=== PATIENT | male | born 1995 | race Two or more races ===

== ENCOUNTER 2017-06-29 20:20 | Emergency (ER) | payer OTHER ==
[~2017-06-29] VITALS: Ht 175.3 cm; Wt 100.7 kg
== END 2017-06-29 23:29 | disposition home or self-care (01) ==
LOC: ER 20:20
DX: S90.32XA Contusion of left foot, initial encounter (principal); W22.8XXA Striking against or struck by other objects, initial encounter; Y93.89 Activity, other specified; Y92.69 Other specified industrial and construction area as the place of occurrence of the external cause; Y99.8 Other external cause status

== ENCOUNTER 2018-10-01 19:27 | Emergency (ER) | payer OTHER ==
[~2018-10-01] VITALS: Ht 180.3 cm; Wt 104.3 kg
== END 2018-10-01 21:56 | disposition home or self-care (01) ==
LOC: ER 19:27
DX: B34.9 Viral infection, unspecified (principal)

== ENCOUNTER 2019-02-20 10:56 | Emergency (ER) | payer OTHER ==
[~2019-02-20] VITALS: Ht 180.3 cm; Wt 99.8 kg
[2019-02-20] MEDS ORDERED: NAPROXEN500 MG PO (14:31)
== END 2019-02-20 14:38 | disposition home or self-care (01) ==
LOC: ER 10:56
DX: S40.012A Contusion of left shoulder, initial encounter (principal); S20.212A Contusion of left front wall of thorax, initial encounter; S20.211A Contusion of right front wall of thorax, initial encounter; W10.8XXA Fall (on) (from) other stairs and steps, initial encounter; Y93.89 Activity, other specified; Y92.69 Other specified industrial and construction area as the place of occurrence of the external cause; Y99.8 Other external cause status

== ENCOUNTER 2021-01-12 10:45 | Emergency (ER) | payer OTHER ==
[~2021-01-12] VITALS: Ht 180.3 cm; Wt 117.9 kg
[~2021-01-12 10:45] MED LIST: NAPROXEN500 MG PO
[2021-01-12] MEDS ORDERED: ZITHROMAX500 MG PO (13:21)
== END 2021-01-12 13:27 ==
LOC: ER 10:45
DX: J02.9 Acute pharyngitis, unspecified (principal); J06.9 Acute upper respiratory infection, unspecified; Z03.818 Encounter for observation for suspected exposure to other biological agents ruled out